=== PATIENT | male | born 1990 | race Caucasian/White ===

== ENCOUNTER 2018-05-27 09:18 | Day surgery (SDC) | payer MEDICAID, OTHER ==
[~2018-05-27 09:18] MED LIST: Bupivacaine 0.5% 50 ML MDV ONE; Lidocaine 1% with EPINEPHrine 1:100,000 50 ML MDV ONE
[2018-05-27] MEDS ORDERED: ceFAZolin 2 GM in Premix Bag 1 BAG IV ONE (09:45)
[2018-05-27] MEDS ORDERED: Dextrose 5%-Lactated Ringers 1,000 ML IV SCH (09:45)
== END 2018-05-27 09:45 | disposition home or self-care (01) ==
LOC: JP.SDS 09:18
PROVIDERS: ATTEND Surgery
DX: K40.90 Unilateral inguinal hernia, without obstruction or gangrene, not specified as recurrent (principal); Z53.8 Procedure and treatment not carried out for other reasons
CPT/HCPCS: J3490

== ENCOUNTER 2021-03-13 09:50 | Inpatient (IN) | payer BC, OTHER ==
[2021-03-13] MEDS ORDERED: Ondansetron 4 MG Tab.DIS PO ONE (09:51)
--- NOTE | 2021-03-13 11:52 | EDM.PDOC ---
ED HPI GENERAL MEDICAL PROBLEM - General Chief Complaint: Abdominal Pain Stated Complaint: SEVERE ABDOM PAIN/VOMITTING Time Seen by Provider: 03/13/21 11:35 Source of Information: Reports: Patient, Old Records, RN History Limitations: Reports: No Limitations - History of Present Illness INITIAL COMMENTS - FREE TEXT/NARRATIVE: 30 yo male presents with low abdominal pain since yesterday. Not getting worse. PHx of hernia repair. Has mild nausea at times. Had diarrhea yesterday, better today. Pain is constant. No diarrhea today. No constipation. No fever. Onset: Gradual Onset Date: 03/12/21 Duration: Day(s): (1+), Constant Location: Reports: Abdomen Quality: Reports: Ache Severity: Mild Improves with: Reports: Rest Worsens with: Reports: Movement Context: Reports: Other (See HPI) Associated Symptoms: Reports: No Other Symptoms, Nausea/Vomiting (no vomiting). Denies: Diaphoresis Treatments [employer]: Reports: Other (see below) (none) Right Abdomen Pain Score (Numeric/FACES): 7 - Related Data Allergies Allergy/AdvReac Type Severity Reaction Status Date / Time No Known Allergies Allergy Verified 03/13/21 11:08 Home Meds: Home Meds NK [No Known Home Meds] 05/23/18 [History] Past Medical History - Infectious Disease History Infectious Disease History: Reports: Chicken Pox - Past Surgical History GI Surgical History: Reports: Hernia, Inguinal Social & Family History - Tobacco Use Tobacco Use Status *Q: Never Tobacco User - Caffeine Use Caffeine Use: Reports: Coffee - Recreational Drug Use Recreational Drug Use: Yes Recreational Drug Type: Reports: Marijuana/Hashish Recreational Drug Use Frequency: Daily ED ROS GENERAL - Review of Systems Review Of Systems: See Below Constitutional: Reports: No Symptoms HEENT: Reports: No Symptoms Respiratory: Reports: No Symptoms Cardiovascular: Reports: No Symptoms GI/Abdominal: Reports: Abdominal Pain, Diarrhea (yesterday), Nausea. Denies: Constipation, Vomiting : Reports: No Symptoms Musculoskeletal: Reports: No Symptoms Skin: Reports: No Symptoms Neurological: Reports: No Symptoms ED EXAM, GI/ABD - Physical Exam Exam: See Below Exam Limited By: Uncooperative General Appearance: WD/WN, No Apparent Distress Eyes: Bilateral: Normal Appearance Ears: Normal External Exam, Normal Canal, Hearing Grossly Normal, Normal TMs Nose: Normal Inspection, No Blood Throat/Mouth: Normal Inspection, Normal Lips, Normal Oropharynx, Normal Voice, No Airway Compromise Head: Atraumatic, Normocephalic Neck: Normal Inspection Respiratory/Chest: No Respiratory Distress, Lungs Clear, Normal Breath Sounds, No Accessory Muscle Use Cardiovascular: Regular Rate, Rhythm, No Edema GI/Abdominal Exam: Normal Bowel Sounds, Soft, No Distention, Tender (suprapubic tenderness). No: Distended Back Exam: Normal Inspection Extremities: Normal Inspection, Normal Range of Motion, Non-Tender, No Pedal Edema Neurological: Alert, Oriented, CN II-XII Intact, Normal Cognition, No Motor/Sensory Deficits Psychiatric: Normal Affect, Normal Mood Skin Exam: Warm, Dry, Intact, Normal Color, No Rash Course - Vital Signs Text/Narrative:: Dr. Vane Diggs paged @ [phone] Last Recorded V/S: Last Vital Signs Temp 36.7 C 03/13/21 11:07 Pulse 85 03/13/21 11:07 Resp 16 03/13/21 11:07 BP 141/84 H 03/13/21 11:07 Pulse Ox 99 03/13/21 11:07 - Orders/Labs/Meds Orders: Active Orders 24 hr Category Date Time Status Abdomen Pelvis w Cont [CT] Stat Exams 03/13/21 12:59 Taken Sodium Chloride 0.9% [Saline Flush] Med 03/13/21 12:06 Active 10 ml FLUSH ASDIRECTED PRN Saline Lock Insert [OM.PC] Routine Oth 03/13/21 12:06 Ordered Medication Orders Sodium Chloride (Sodium Chloride 0.9% 10 Ml Syringe) 10 ml FLUSH ASDIRECTED PRN PRN Reason: Keep Vein Open Last Admin: 03/13/21 13:02 Dose: 10 ml Documented by: [id number] Labs: Laboratory Tests 03/13/21 03/13/21 03/13/21 Range/Units 11:45 11:45 12:00 WBC 15.6 H (4.5-11.0) K/uL RBC 5.12 (4.30-5.90) M/uL Hgb 15.6 H (12.0-15.0) g/dL Hct 44.4 (40.0-54.0) % MCV 87 (80-98) fL MCH 31 (27-31) pg MCHC 35 (32-36) % Plt Count 161 (150-400) K/uL Sodium 140 (140-148) mmol/L Potassium 4.0 (3.6-5.2) mmol/L Chloride 100 (100-108) mmol/L Carbon Dioxide 30 (21-32) mmol/L Anion Gap 10.2 (5.0-14.0) mmol/L BUN 15 (7-18) mg/dL Creatinine 1.1 (0.8-1.3) mg/dL Est Cr Clr Drug Dosing 117.45 mL/min Estimated GFR (MDRD) > 60 (>60) Glucose 110 H (74-106) mg/dL Calcium 9.2 (8.5-10.1) mg/dL C-Reactive Protein 10.17 H (0.0-0.3) mg/dL Urine Color (YELLOW) Urine Appearance (CLEAR) Urine pH (5.0-8.0) Ur Specific [place] (1.008-1.030) Urine Protein (NEGATIVE) mg/dL Urine Glucose (UA) (NEGATIVE) mg/dL Urine Ketones (NEGATIVE) mg/dL Urine Occult Blood (NEGATIVE) Urine Nitrite (NEGATIVE) Urine Bilirubin (NEGATIVE) Urine Urobilinogen (0.2-1.0) EU/dL Ur Leukocyte Esterase (NEGATIVE) Urine RBC (0-5) Urine WBC (0-5) Ur Epithelial Cells Amorphous Sediment Urine Bacteria Urine Mucus 03/13/21 Range/Units 13:01 WBC (4.5-11.0) K/uL RBC (4.30-5.90) M/uL Hgb (12.0-15.0) g/dL Hct (40.0-54.0) % MCV (80-98) fL MCH (27-31) pg MCHC (32-36) % Plt Count (150-400) K/uL Sodium (140-148) mmol/L Potassium (3.6-5.2) mmol/L Chloride (100-108) mmol/L Carbon Dioxide (21-32) mmol/L Anion Gap (5.0-14.0) mmol/L BUN (7-18) mg/dL Creatinine (0.8-1.3) mg/dL Est Cr Clr Drug Dosing mL/min Estimated GFR (MDRD) (>60) Glucose (74-106) mg/dL Calcium (8.5-10.1) mg/dL C-Reactive Protein (0.0-0.3) mg/dL Urine Color Yellow (YELLOW) Urine Appearance Clear (CLEAR) Urine pH 6.5 (5.0-8.0) Ur Specific [place] 1.015 (1.008-1.030) Urine Protein Negative (NEGATIVE) mg/dL Urine Glucose (UA) Negative (NEGATIVE) mg/dL Urine Ketones Negative (NEGATIVE) mg/dL Urine Occult Blood Negative (NEGATIVE) Urine Nitrite Negative (NEGATIVE) Urine Bilirubin Negative (NEGATIVE) Urine Urobilinogen 2.0 H (0.2-1.0) EU/dL Ur Leukocyte Esterase Negative (NEGATIVE) Urine RBC Not seen (0-5) Urine WBC Not seen (0-5) Ur Epithelial Cells Not seen Amorphous Sediment Rare Urine Bacteria Not seen Urine Mucus Not seen Meds: Medications Generic Name Dose Route Start Last Admin Trade Name Freq PRN Reason Stop Dose Admin Sodium Chloride 10 ml 03/13/21 12:06 03/13/21 13:02 Sodium Chloride 0.9% 10 Ml Syringe FLUSH 10 ml ASDIRECTED PRN Administration Keep Vein Open Discontinued Medications Generic Name Dose Route Start Last Admin Trade Name Freq PRN Reason Stop Dose Admin Sodium Chloride 80 mls @ 3.5 mls/sec 03/13/21 13:15 03/13/21 13:26 Normal Saline IV 03/13/21 14:00 3.5 mls/sec ASDIRECTED MIRI Administration Iopamidol 124 ml 03/13/21 13:15 03/13/21 13:25 Iopamidol 612 Mg/Ml 150 Ml Bottle IV 03/13/21 14:00 124 ml . DIRECTED MIRI Administration Ondansetron HCl 4 mg 03/13/21 09:51 03/13/21 11:45 Ondansetron 4 Mg Tab.Dis PO 03/13/21 09:52 4 mg ONETIME ONE Administration Sodium Chloride 10 ml 03/13/21 13:08 03/13/21 13:25 Sodium Chloride 0.9% 10 Ml Syringe FLUSH 03/13/21 13:09 10 ml ONETIME ONE Administration - Radiology Interpretation Free Text/Narrative:: CT abd/pelvis with IV contrast- Impression: 1. Acute appendicitis. 2. No loculated fluid collection/abscess. 3. No evidence for pneumoperitoneum. 4. Surgical consultation is suggested for these findings. 5. Report called to Dr. Looney, Emergency Department, 03/13/21, 1412 hours. Dictated by Nathanael Holcomb MD @ 03/13/2021 2:14:[address] Results Date: 03/13/21 CT Results Time: 14:15 Departure - Departure Time of Disposition: 14:30 Disposition: Admitted As Inpatient 67 Condition: Fair Clinical Impression: Acute appendicitis Qualifiers: Acute appendicitis type: with localized peritonitis Appendicitis gangrene presence: unspecified whether gangrene present Appendicitis perforation presence: without perforation Appendicitis abscess presence: without abscess Qualified Code(s): K35.30 - Acute appendicitis with localized peritonitis, without perforation or gangrene - Discharge Information *PRESCRIPTION DRUG MONITORING PROGRAM REVIEWED*: Not Applicable *COPY OF PRESCRIPTION DRUG MONITORING REPORT IN PATIENT GE: Not Applicable Instructions: Appendicitis, Adult, [id number] Referrals: PCP,None [Primary Care Provider] - Forms: ED Department Discharge Sepsis Event Note (ED) - Evaluation Sepsis Screening Result: No Definite Risk - Focused Exam Vital Signs: Vital Signs Temp Pulse Resp BP Pulse Ox 03/13/21 11:07 36.7 C 85 16 141/84 H 99 - My Orders Last 24 Hours: My Active Orders 03/13/21 12:06 Sodium Chloride 0.9% [Saline Flush] 10 ml FLUSH ASDIRECTED PRN Saline Lock Insert [OM.PC] Routine 03/13/21 12:59 Abdomen Pelvis w Cont [CT] Stat - Assessment/Plan Last 24 Hours: My Active Orders 03/13/21 12:06 Sodium Chloride 0.9% [Saline Flush] 10 ml FLUSH ASDIRECTED PRN Saline Lock Insert [OM.PC] Routine 03/13/21 12:59 Abdomen Pelvis w Cont [CT] Stat
[2021-03-13] MEDS ORDERED: Sodium Chloride 0.9% 10 ML Syringe FLUSH PRN (12:06)
[2021-03-13] MEDS ORDERED: Sodium Chloride 0.9% 10 ML Syringe FLUSH ONE (13:08)
[2021-03-13] MEDS ORDERED: Sodium Chloride 0.9% 80 ML IV SCH (13:15)
[2021-03-13] MEDS ORDERED: Iopamidol 612 MG/ML 150 ML Bottle IV SCH (13:15)
--- NOTE | 2021-03-13 14:16 | CRLCT ---
For Patients: As a result of the Century Cures Act, medical imaging exams and procedure reports are released immediately into your electronic medical record. You may view this report before your referring provider. If you have questions, please contact your health care provider. INDICATION: abdom pain, high CRP and wbc ct. Indication: Abdominal pain. Elevated CRP. Leukocytosis. Technique: CT of the abdomen pelvis. 124 cc of Isovue-300 IV. Coronal/sagittal reconstruction images. Comparison: None. Findings: Lung bases: There is no pleural or pericardial effusion. The heart size is normal. There is no acute airspace disease. There is no basilar pneumothorax. Abdomen/pelvis: The liver morphology is non cirrhotic. There is no solid hepatic mass. There is no perihepatic ascites. There are no inflammatory changes adjacent to the gallbladder. There is no splenomegaly. There is no adrenal mass. There are no perinephric fluid collections. No striated nephrogram. No solid renal mass. There is no pancreatic mass, pancreatic duct dilation, or glandular atrophy. There is a small amount of free fluid in the pelvis. Urinary bladder is normal. There is no loculated fluid collection. There is no transition point seen to indicate a mechanical small bowel or colonic obstruction. The appendix appears dilated and thick walled. This is well seen on image 165 of series 2. The appendix measures up to 12 millimeters in luminal dimension. Acute appendicitis is suspected. The appendix is also well seen on coronal reconstruction images, with periappendiceal fat stranding, seen best on image 58 of series 3. No inguinal lymphadenopathy by size criteria. There is no pelvic sidewall, retroperitoneal, gastrohepatic ligament adenopathy. The visceral artery branches are patent. There is no abdominal aortic aneurysm. The bone windows demonstrate no suspicious bone lesions. On sagittal reconstruction images, the vertebral body heights are maintained. Impression: 1. Acute appendicitis. 2. No loculated fluid collection/abscess. 3. No evidence for pneumoperitoneum. 4. Surgical consultation is suggested for these findings. 5. Report called to Dr. Looney, Emergency Department, 03/13/21, 1412 hours. Dictated by Nathanael Holcomb MD @ 03/13/2021 2:14:39 PM Please note that all CT scans at this facility use dose modulation, iterative reconstruction, and/or weight-based dosing when appropriate to reduce radiation dose to as low as reasonably achievable. Dictated by: Nathanael Holcomb MD @ 03/13/2021 14:14:49 (Electronically Signed)
[2021-03-13] MEDS ORDERED: HYDROmorphone 1 MG/ML Syringe IV PRN (15:05)
[2021-03-13] MEDS ORDERED: Ondansetron 4 MG/2 ML SDV IVPUSH PRN (15:05)
[2021-03-13] MEDS: Ampicillin/Sulbactam Na 3 GM in Sodium Chloride 0.9% 100 ML IV SCH ×2 (15:57→22:18)
[2021-03-13] MEDS: Dextrose 5%-Lactated Ringers 1,000 ML IV SCH (23:39)
[2021-03-14] MEDS: Ampicillin/Sulbactam Na 3 GM in Sodium Chloride 0.9% 100 ML IV SCH ×4 (03:21→21:42)
[2021-03-14] MEDS ORDERED: Bupivacaine 0.5%/EPINEPHrine 1:200,000 50 ML MDV ONE (06:35)
[2021-03-14] MEDS ORDERED: Propofol 200 MG/20 ML SDV ONE (07:08)
[2021-03-14] MEDS ORDERED: Glycopyrrolate 0.2 MG/ML 5 ML MDV ONE (07:08)
[2021-03-14] MEDS ORDERED: Neostigmine Methylsulfate 1 MG/ML 5 ML Syringe ONE (07:08)
[2021-03-14] MEDS ORDERED: Ondansetron 4 MG/2 ML SDV ONE (07:08)
[2021-03-14] MEDS ORDERED: Succinylcholine 200 MG/10 ML MDV ONE (07:08)
[2021-03-14] MEDS ORDERED: Dexamethasone 4 MG/ML SDV ONE (07:08)
[2021-03-14] MEDS ORDERED: Rocuronium 50 MG/5 ML Vial ONE (07:08)
[2021-03-14] MEDS ORDERED: fentaNYL 250 MCG/5 ML SDV ONE ×2 (07:08→07:30)
[2021-03-14] MEDS ORDERED: Sugammadex Sodium 200 MG/2 ML VIAL ONE (07:54)
--- NOTE | 2021-03-14 07:56 | PN ---
DATE OF SERVICE: 03/14/2021 SUBJECTIVE: Tino was admitted with acute appy. He is n.p.o. He will be going to the operating room, 1st case today. He reports he has had no pain since admission. Vital signs have been stable. REVIEW OF SYSTEMS: Remainder of review of systems negative for any pertinent positives or negatives. Admission H and P reviewed. OBJECTIVE: GENERAL: Tino De La Cruz is a 30-year-old male. He is alert and orientated. VITAL SIGNS: Height is 6 feet 4 inches, weight 177 pounds. TPR is 96.3, 58, 18, blood pressure 114/54. HEENT: Negative. NECK: Supple. HEART: Regular rate and rhythm. LUNGS: Clear. ABDOMEN: Stated right lower quadrant abdominal pain. EXTREMITIES: Without edema. NEURO: Intact. SKIN: Without rash. PSYCHIATRIC: Mood and affect appropriate. ASSESSMENT: Acute appendicitis. PLAN: Scheduled, have consent signed for laparoscopic, possible open appendectomy, general anesthesia, 03/14/2021. Surgeon, Mejia Diggs MD. After preoperative evaluation and discussion of possible risks and possible complications, the patient wishes to proceed with surgical procedure. Orders to be written post. Beth Stokes PA-C /[id number]
[2021-03-14] MEDS: Docusate Sodium 100 MG Cap PO SCH ×2 (10:31→21:42)
[2021-03-14] MEDS: Acetaminophen 500 MG Tab PO SCH ×3 (10:31→21:42)
[2021-03-14] MEDS: HYDROmorphone 2 MG Tab PO PRN ×2 (11:21→15:49)
[2021-03-14] MEDS: Dextrose 5%-Lactated Ringers 1,000 ML IV SCH (13:49)
[2021-03-15] MEDS: Acetaminophen 500 MG Tab PO SCH (03:59)
[2021-03-15] MEDS: Ampicillin/Sulbactam Na 3 GM in Sodium Chloride 0.9% 100 ML IV SCH (03:59)
[2021-03-15] MEDS: HYDROmorphone 2 MG Tab PO PRN (08:12)
[2021-03-15] MEDS: Docusate Sodium 100 MG Cap PO SCH (08:13)
--- NOTE | 2021-03-15 18:55 | DISCH ---
ADMISSION DIAGNOSIS: Acute appendicitis. DISCHARGE DIAGNOSES: Laparoscopic appendectomy with drainage of jasmeet-appendiceal abscess. POSTOPERATIVE DIAGNOSIS: Acute appendicitis with perforation and periappendiceal abscess. Date of procedure: 03/14/2021, surgeon Mejia Diggs MD. HISTORY: Tino De La Cruz is a 30-year-old male who presented to the emergency department at [place], [place] with right lower quadrant abdominal pain for approximately 24 hours. After preoperative evaluation and discussion of possible risks and possible complications, he wished to proceed with surgical procedure. HOSPITAL COURSE: Tino had his surgery on 03/14/2021. He had no operative complications. On postoperative day 1, his pain was controlled with Tylenol. Activity was good, oral intake adequate, and he was able to be discharged to home. PHYSICAL EXAMINATION: GENERAL: Tino De La Cruz is a 30-year-old male. VITAL SIGNS: Height is 6 feet 4 inches, weight is 177 pounds. TPR 95, 66, 18. Blood pressure 125/64. HEENT: Negative. NECK: Supple. HEART: Regular rate and rhythm. LUNGS: Clear. ABDOMEN: Dressings dry and intact. Abdominal binder is on. EXTREMITIES: Without peripheral edema. DISPOSITION: Discharged to home. CONDITION: Stable and improving. FOLLOWUP: Appointment with Mejia Diggs MD at [facility] on 03/23/2021 at 10 a.m. HOME MEDICATIONS: Augmentin 875 mg one by mouth b.i.d. for 5 days, #10 given. Colace 100 mg p.o. b.i.d., #60. Motrin 600 mg p.o. q.6 hours p.r.n. pain. The patient was instructed to schedule the Motrin alternating with acetaminophen 1000 mg q.6 hours p.o. to be bought over the counter. Two doses of milk of magnesia were sent home with the patient to take 1 daily as needed for constipation. DIET: Usual diet as tolerated. Drink 8 to 10 glasses of water a day. ACTIVITY: No lifting greater than 10 pounds for 2 weeks. Driving: May drive today. Shower/bathing: May shower. Wound incision care: Keep operative site clean and dry. Wear abdominal binder for 2 weeks and then as tolerated. Notify provider if any fever, increased pain, swelling, redness, drainage, nausea, vomiting. Use incentive spirometer 10 times every hour while awake for 1 week. /[id number]
--- NOTE | 2021-03-16 13:32 | OR ---
DATE OF PROCEDURE: 03/14/2021 SURGEON: Mejia Diggs MD PREOPERATIVE DIAGNOSIS: Acute appendicitis. POSTOPERATIVE DIAGNOSIS: Acute appendicitis with perforation and focal periappendiceal abscess. OPERATIVE PROCEDURE: Diagnostic laparoscopy with appendectomy and drainage of periappendiceal abscess. ANESTHESIA: General. HEALTH SCIENCES MANAGER: Beth Stokes PA-C INDICATIONS FOR PROCEDURE: This is a 30-year-old male presenting with acute appendicitis clinically and radiologically and is admitted overnight with IV antibiotics. Plan is to undergo laparoscopic or if necessary open appendectomy this morning. Potential risks of the procedure including bleeding, infection, leaks from GI tract closures, possible need for larger procedure based on operative findings were all reviewed with the patient and he wishes to proceed. DETAILS OF PROCEDURE: The patient was taken to the operating room and placed in a supine position. After general endotracheal anesthesia was induced, a Johnson catheter was inserted which was removed at the end of the procedure and the abdomen prepped and draped. Three fingerbreadths superior, and to the left of the umbilicus, a transverse incision was made and carried down through the skin and subcutaneous tissue and the peritoneal cavity entered under direct vision with an Optiview trocar and inflated to 15 mmHg pressure with CO2. Laparoscope was then reinserted. No underlying trocar insertion site injuries were seen. Following this, 12 mm trocar was placed in the left lower quadrant and right upper quadrant. The area of the cecal base was then identified and retracted upward. As this was retracted upward, the appendix was identified and was found to be grossly inflamed. There was roughly a 5 to 10 mL of purulent collection adjacent to the appendix which was evacuated, and after drainage of that abscess, the base of the appendix was freed up and flushed with the cecum and divided with a VIK purple load. The mesoappendix was then divided with Harmonic scalpel. The appendiceal specimen was then placed in a specimen bag and retrieved through the left lower quadrant trocar site. At this point, no further problems noted. The staple line at the cecum appeared to be nicely tagged and no bleeding noted and the area of the periappendiceal abscess appeared to have been well evacuated. A drain was therefore not placed. Trocars were then sequentially removed from the peritoneal cavity and deflated. Fascia at the trocar site was closed with 0 Vicryl stitch and the skin with 4-0 Vicryl skin stitch. The patient received bilateral transversus abdominis plane blocks and incision was also anesthetized with 1% lidocaine mixed with Marcaine. The patient was taken to the recovery room in satisfactory condition. Physician assistant professor of psychology, Beth Stokes, played an essential role in assisting in this case helping to position the patient, retract structures as needed, as well as suturing and cutting sutures when indicated. Her presence improved patient safety and decreased operative time. Mejia Diggs MD Job #: [id number]
== END 2021-03-15 08:30 | disposition home or self-care (01) | DRG 225 ==
LOC: JP.ED 09:50 → JP.MS 14:36
PROVIDERS: ADMIT Surgery; ATTEND Surgery
PROC: 0DTJ4ZZ Resection of Appendix, Percutaneous Endoscopic Approach (ICD-10-PCS; principal; 2021-03-14)
PROC: 0D9J4ZZ Drainage of Appendix, Percutaneous Endoscopic Approach (ICD-10-PCS; 2021-03-14)
DX: K35.33 Acute appendicitis with perforation, localized peritonitis, and gangrene, with abscess (principal); Z20.822 Contact with and (suspected) exposure to COVID-19
CPT/HCPCS: 36415; 74177; 80048; 81001; 85027; 86140; 87070; 87075; 87077; 87186; 87205; 88304; 90686; 99285-25; A9270-GY; J0171; J0295; J0330; J1100; J2405; J2704; J2710; J2795; J3010; J3490; J7121; Q9967; U0002